=== PATIENT | female | born 1995 | race Caucasian/White ===

== ENCOUNTER 2017-10-16 08:53 | Emergency (ER) | payer MEDICAID ==
[~2017-10-16] VITALS: Ht 172.7 cm; Wt 89.4 kg
[2017-10-16] MEDS ORDERED: SODIUM CHLORIDE 0.9% 1,000 ML IV ONE (09:19)
[2017-10-16] MEDS ORDERED: SODIUM CHLORIDE 0.9% 1,000ML IVBOLUS ONE (09:30)
[2017-10-16] MEDS ORDERED: ONDANSETRON ODT 4 MG PO ONE (09:30)
[2017-10-16] MEDS ORDERED: SODIUM CHLORIDE FLUSH 10ML SYR IVF ONE (09:30)
[2017-10-16] MEDS ORDERED: ONDANSETRON ODT 4 MG ONE (09:38)
[2017-10-16] MEDS ORDERED: MORPHINE SULFATE 4 MG/ML, 1ML ONE ×2 (09:42→11:35)
[2017-10-16] MEDS: MORPHINE SULFATE 4 MG/ML, 1ML IVPush PRN ×2 (09:56→11:38)
[2017-10-16 10:13] LABS: BASOPHILS % (AUTO) 0 % (0-1); EOSINOPHILS # (AUTO) 0.12 x10^3/uL (0-0.4); EOSINOPHILS % (AUTO) 1 % (1-7); LYMPHOCYTES # (AUTO) 0.35 x10^3/uL (1-3.4); LYMPHOCYTES % (AUTO) 2 % (22-44); MD NO; MEAN CORPUSCULAR HEMOGLOBIN 30.7 pg (27.0-34.8); MEAN CORPUSCULAR HGB CONC 34.6 g/dL (32.4-35.8); MEAN PLATELET VOLUME 8.7 fL (7.4-10.4); MONOCYTES # (AUTO) 0.89 x10^3/uL (0.2-0.8); MONOCYTES % (AUTO) 6 % (2-9); NEUTROPHILS # (AUTO) 13.76 x10^3/uL (1.8-6.8); NEUTROPHILS % (AUTO) 91 % (42-75); PLATELET COUNT 348 x10^3/uL (130-400); RED BLOOD COUNT 5.23 x10^6/uL (3.82-5.3)
[2017-10-16] MEDS ORDERED: AMLO10TA2 PO (10:19)
[2017-10-16] MEDS ORDERED: LISI-167 PO (10:19)
[2017-10-16] MEDS ORDERED: SYMBICORT INHALER (10:19)
[2017-10-16] MEDS ORDERED: IRON PILL (10:19)
[2017-10-16] MEDS ORDERED: METF500T4 PO (10:19)
[2017-10-16] MEDS ORDERED: ALBUTEROL INHALER (10:19)
[2017-10-16] MEDS ORDERED: ASPI-621 PO (10:19)
[2017-10-16 10:21] LABS: ALBUMIN 4.1 g/dL (3.4-5.0); ANION GAP 8 mmol/L (5-15); CALCIUM 8.8 mg/dL (8.5-10.1); CHLORIDE 108 mmol/L (98-107)
[2017-10-16 10:27] LABS: ALANINE AMINOTRANSFERASE 19 U/L (12-78); ALKALINE PHOSPHATASE 108 U/L (45-117); BILIRUBIN,TOTAL 0.4 mg/dL (0.2-1.0); CREATININE 0.88 mg/dL (0.55-1.02); TOTAL PROTEIN 8.4 g/dL (6.4-8.2)
[2017-10-16 12:48] LABS: MICROSCOPIC INDICATED
[2017-10-16 13:23] LABS: CULTURE INDICATED? NO
[2017-10-16 14:02] VITALS: BP 122/59
[2017-10-16] MEDS ORDERED: OMNIPAQUE 350 MG/ML, 100ML BOTTLE ONE (15:14)
== END 2017-10-16 14:38 | disposition home or self-care (01) ==
LOC: ED 09:12
DX: K52.9 Noninfective gastroenteritis and colitis, unspecified (principal)
CPT/HCPCS: 36415; 74021; 74177; 76700; 80053; 81001; 83690; 84703; 85025; 96361; 96374; 96376; 99285; J7030; Q0162; Q9967

== ENCOUNTER 2018-04-16 10:14 | Emergency (ER) | payer MEDICAID ==
[~2018-04-16] VITALS: Ht 172.7 cm; Wt 88.9 kg
[~2018-04-16 10:14] MED LIST: ALBUTEROL INHALER; AMLO10TA6 PO; ASPI81TA45 PO; IRON PILL; LISI-167 PO; METF500T17 PO; SYMBICORT INHALER
[2018-04-16] MEDS ORDERED: ONDANSETRON 2MG/ML, 2ML ONE (10:57)
[2018-04-16] MEDS ORDERED: KETOROLAC 30 MG/1 ML ONE (10:57)
[2018-04-16] MEDS ORDERED: ONDANSETRON 2MG/ML, 2ML IVPush ONE (11:00)
[2018-04-16] MEDS ORDERED: KETOROLAC 30 MG/1 ML IVPush ONE (11:00)
[2018-04-16] MEDS ORDERED: SODIUM CHLORIDE FLUSH 10ML SYR IVF ONE (11:00)
[2018-04-16 11:09] LABS: BASOPHILS # (AUTO) 0.03 x10^3/uL (0-0.1); BASOPHILS % (AUTO) 0 % (0-1); EOSINOPHILS # (AUTO) 0.46 x10^3/uL (0-0.4); EOSINOPHILS % (AUTO) 4 % (1-7); LYMPHOCYTES # (AUTO) 2.07 x10^3/uL (1-3.4); LYMPHOCYTES % (AUTO) 18 % (22-44); MD NO; MEAN CORPUSCULAR HEMOGLOBIN 29.7 pg (27.0-34.8); MEAN CORPUSCULAR HGB CONC 33.6 g/dL (32.4-35.8); MEAN CORPUSCULAR VOLUME 88.3 fL (80-100); MONOCYTES # (AUTO) 0.58 x10^3/uL (0.2-0.8); MONOCYTES % (AUTO) 5 % (2-9); NEUTROPHILS # (AUTO) 8.34 x10^3/uL (1.8-6.8); NEUTROPHILS % (AUTO) 73 % (42-75); PLATELET COUNT 314 x10^3/uL (130-400); RED BLOOD COUNT 4.81 x10^6/uL (3.82-5.3); RED CELL DISTRIBUTION WIDTH 13.9 % (9.6-15.2)
[2018-04-16 11:19] LABS: ALANINE AMINOTRANSFERASE 34 U/L (12-78); ALBUMIN 3.6 g/dL (3.4-5.0); ANION GAP 6 mmol/L (5-15); CHLORIDE 108 mmol/L (98-107); CREATININE 0.79 mg/dL (0.55-1.02)
[2018-04-16 11:23] LABS: BILIRUBIN,TOTAL 0.2 mg/dL (0.2-1.0); TOTAL PROTEIN 7.2 g/dL (6.4-8.2); TROPONIN I < 0.015 ng/mL (0.000-0.045)
[2018-04-16 11:24] LABS: ALKALINE PHOSPHATASE 96 U/L (45-117)
[2018-04-16 12:15] VITALS: BP 107/66
[2018-04-16] MEDS ORDERED: OMNIPAQUE 350 MG/ML, 100ML BOTTLE ONE (12:29)
== END 2018-04-16 13:34 | disposition home or self-care (01) ==
LOC: ED 11:18
DX: R07.89 Other chest pain (principal); R06.02 Shortness of breath; F17.200 Nicotine dependence, unspecified, uncomplicated
CPT/HCPCS: 36415; 71275; 80053; 84484; 84703; 85025; 93005; 96374; 99284; J1885; Q9967

== ENCOUNTER 2018-05-23 23:15 | Emergency (ER) | payer MEDICAID ==
[~2018-05-23] VITALS: Ht 180.3 cm; Wt 90.4 kg
[~2018-05-23 23:15] MED LIST changes: -AMLO10TA6 PO; +AMLO10TA8 PO
--- NOTE | 2018-05-23 23:42 | NUR ---
pt reports feeling like something is stuck in her throat. reports that it hurts when she swallows but at no other time. has tried to wash it down with water but without success. has anxiety secondary to.
[2018-05-24] MEDS ORDERED: ONDANSETRON ODT 4 MG PO ONE (00:30)
[2018-05-24] MEDS ORDERED: OXYMETAZOLINE NASAL SPRAY 0.05%, 15ML NAS ONE (00:30)
[2018-05-24] MEDS ORDERED: ONDANSETRON ODT 4 MG ONE (00:41)
[2018-05-24] MEDS ORDERED: OXYMETAZOLINE NASAL SPRAY 0.05%, 15ML ONE (00:41)
[2018-05-24] MEDS ORDERED: LORazepam 1MG TABLET ONE (00:42)
--- NOTE | 2018-05-24 00:58 | NUR ---
pt premedicated for audio video repairer scope with ativan and zofran. reports feeling like whatever is in throat is moving down. very anxious.
[2018-05-24] MEDS ORDERED: LORazepam 1MG TABLET PO ONE (01:00)
[2018-05-24] MEDS ORDERED: LIDOCAINE 4% TOPICAL SOLUTION 50 ML TP ONE (01:00)
--- NOTE | 2018-05-24 01:10 | NUR ---
ASSUMED CARE OF PATIENT. REPORT GIVEN FROM SHON LACEY
[2018-05-24] MEDS ORDERED: BACITRACIN ZINC OINT 500U/GM, 0.9 GM ONE (01:29)
[2018-05-24 01:46] VITALS: BP 112/71
[2018-05-24] MEDS ORDERED: MAALOX/HYOSCYAMINE/LIDOCAINE 45 ML BTL PO ONE (02:00)
== END 2018-05-24 02:08 | disposition home or self-care (01) ==
LOC: ED 23:44
DX: T17.228A Food in pharynx causing other injury, initial encounter (principal); J02.9 Acute pharyngitis, unspecified; X58.XXXA Exposure to other specified factors, initial encounter; Y93.89 Activity, other specified; Y92.89 Other specified places as the place of occurrence of the external cause; Y99.8 Other external cause status
CPT/HCPCS: 99284; Q0162

== ENCOUNTER 2019-09-05 09:27 | Emergency (ER) | payer MEDICAID ==
[~2019-09-05] VITALS: Ht 170.2 cm; Wt 84.0 kg
--- NOTE | 2019-09-05 09:52 | NUR ---
CONSTRUCTION SUPERVISOR: PT TO ROOM FROM [facility]
--- NOTE | 2019-09-05 10:34 | NUR ---
LABS DRAWN. PT TO CT PER [facility]
[2019-09-05 10:52] LABS: MICROSCOPIC INDICATED
[2019-09-05 10:52] LABS: BASOPHILS # (AUTO) 0.05 x10^3/uL (0-0.1); BASOPHILS % (AUTO) 0 % (0-1); EOSINOPHILS # (AUTO) 0.27 x10^3/uL (0-0.4); EOSINOPHILS % (AUTO) 2 % (1-7); LYMPHOCYTES % (AUTO) 13 % (22-44); MD NO; MEAN CORPUSCULAR HEMOGLOBIN 30.7 pg (27.0-34.8); MEAN CORPUSCULAR HGB CONC 33.5 g/dL (32.4-35.8); MEAN CORPUSCULAR VOLUME 91.7 fL (80-100); MONOCYTES # (AUTO) 0.75 x10^3/uL (0.2-0.8); MONOCYTES % (AUTO) 5 % (2-9); NEUTROPHILS # (AUTO) 11.03 x10^3/uL (1.8-6.8); NEUTROPHILS % (AUTO) 79 % (42-75); PLATELET COUNT 367 x10^3/uL (130-400)
[2019-09-05 11:02] LABS: ALBUMIN 3.2 g/dL (3.4-5.0); ANION GAP 6 mmol/L (5-15); CALCIUM 8.9 mg/dL (8.5-10.1); CHLORIDE 106 mmol/L (98-107)
[2019-09-05 11:06] LABS: CULTURE INDICATED? NO
[2019-09-05 11:07] LABS: ALANINE AMINOTRANSFERASE 87 U/L (12-78); ALKALINE PHOSPHATASE 96 U/L (45-117); BILIRUBIN,TOTAL 0.6 mg/dL (0.2-1.0); CREATININE 0.71 mg/dL (0.55-1.02); TOTAL PROTEIN 7.8 g/dL (6.4-8.2)
--- NOTE | 2019-09-05 12:20 | NUR ---
PT REQUESTING PAIN MED; ERP WILL BE NOTIFIED.
[2019-09-05 12:56] VITALS: BP 118/52
== END 2019-09-05 13:05 | disposition home or self-care (01) ==
LOC: ED 10:05
DX: N83.292 Other ovarian cyst, left side (principal); F17.290 Nicotine dependence, other tobacco product, uncomplicated; Z98.51 Tubal ligation status
CPT/HCPCS: 36415; 76830; 80053; 81001; 84703; 85025; 99284

== ENCOUNTER 2019-09-11 18:42 | Emergency (ER) | payer MEDICAID ==
[~2019-09-11] VITALS: Ht 170.2 cm; Wt 82.9 kg
--- NOTE | 2019-09-11 19:30 | NUR ---
PT SITTING UP ON GURNEY, MONITORS IN PLACE, SIDERAIL SUP X2, CALL LIGHT WITHIN REACH. MEDICATED PER MAR
--- NOTE | 2019-09-11 19:33 | NUR ---
PROVIDED PT WITH SOCKS, PT UP TO RR WITH STEADY GAIT
--- NOTE | 2019-09-11 19:52 | NUR ---
PT RESTING CALMLY, DENIES NEEDS, MONITORS REAPPLIED, CALL LIGHT WITHIN REACH. AWAITING LAB RESULTS
--- NOTE | 2019-09-11 20:14 | NUR ---
RN CLINICAL RESOURCE AT PT'S BEDSIDE
[2019-09-11 20:50] LABS: FREE T4 (FREE THYROXINE) 1.09 ng/dL (0.76-1.46)
[2019-09-11 21:18] VITALS: BP 118/68
== END 2019-09-11 21:24 | disposition home or self-care (01) ==
LOC: ED 19:03
DX: F41.1 Generalized anxiety disorder (principal); R00.0 Tachycardia, unspecified; Z98.51 Tubal ligation status
CPT/HCPCS: 36415; 84439; 84443; 93005; 99284

== ENCOUNTER 2019-10-23 13:35 | Emergency (ER) | payer MEDICAID ==
[~2019-10-23] VITALS: Ht 172.7 cm; Wt 82.3 kg
[2019-10-23 14:14] VITALS: BP 111/81
--- NOTE | 2019-10-23 15:07 | NUR ---
TO JAI FROM [facility]OB[facility]
[2019-10-23] MEDS ORDERED: KETOROLAC 30 MG/1 ML ONE (16:15)
[2019-10-23] MEDS ORDERED: KETOROLAC 30 MG/1 ML IM ONE (16:30)
== END 2019-10-23 16:42 | disposition home or self-care (01) ==
LOC: ED 16:38
DX: S39.012A Strain of muscle, fascia and tendon of lower back, initial encounter (principal); W01.0XXA Fall on same level from slipping, tripping and stumbling without subsequent striking against object, initial encounter; Y93.89 Activity, other specified; Y92.89 Other specified places as the place of occurrence of the external cause; Y99.8 Other external cause status
CPT/HCPCS: 72110; 72220; 96372; 99284; J1885

== ENCOUNTER 2020-11-11 17:39 | Emergency (ER) | payer MEDICAID ==
[~2020-11-11] VITALS: Ht 172.7 cm; Wt 69.0 kg
[~2020-11-11 17:39] MED LIST changes: +AMLO-211 PO; -AMLO10TA8 PO
[2020-11-11 17:57] VITALS: BP 112/2
--- NOTE | 2020-11-11 18:08 | NUR ---
TASK RN: 24 YR OLD FEMALE HERE WITH C/O "RIGHT EYE PAIN AND BURNING. I WAS IN THE POOL WITH MY KIDS AND I DONT KNOW IF I GOT A HAIR IN MY EYE OR IF SOMETHING BLEW IN THERE. I CAN FEEL IT MOVING AROUND" PT TRIED TO IRRIGATE EYE AND PUT SOME ABX DROPS IN HER EYE. PT REPORTS SENSITIVITY TO LIGHT.
[2020-11-11] MEDS ORDERED: PROPARACAINE OPHTH 0.5%, 15ML ONE (18:13)
[2020-11-11] MEDS ORDERED: FLUORESCEIN OPHTHALMIC 1 MG STRIP ONE (18:13)
--- NOTE | 2020-11-11 19:09 | NUR ---
Patient given discharge instructions and they have confirmed that they understand the instructions. Patient ambulatory with steady gait. NAD, all questions answered appropriately, denies additional needs at this time. No personal belongings left in room after discharge.
== END 2020-11-11 19:11 | disposition home or self-care (01) ==
LOC: ED 18:00
DX: T15.11XA Foreign body in conjunctival sac, right eye, initial encounter (principal); H10.11 Acute atopic conjunctivitis, right eye; F17.210 Nicotine dependence, cigarettes, uncomplicated; X58.XXXA Exposure to other specified factors, initial encounter; Y93.89 Activity, other specified; Y92.89 Other specified places as the place of occurrence of the external cause; Y99.8 Other external cause status
CPT/HCPCS: 99283